=== PATIENT | male | born 2000 | race African-American/Black ===

== ENCOUNTER 2023-01-20 17:31 | Emergency (ER) | payer OTHER ==
[2023-01-20 17:54] VITALS: BP 136/91; PULSE 60; RESP 18; TEMP 99.1; BMI 22.4
[2023-01-20] MEDS ORDERED: AMOX TR/POT CLAV 875MG/125MG TABLETS (FP) PO ONE (19:27)
[2023-01-20] MEDS ORDERED: AMOX TR/POT CLAV 875MG/125MG TABLETS (FP) ONE (19:30)
== END 2023-01-20 19:40 | disposition home or self-care (01) ==
LOC: FER 17:31
DX: S70.11XA Contusion of right thigh, initial encounter (principal); W54.0XXA Bitten by dog, initial encounter; Y99.0 Civilian activity done for income or pay
CPT/HCPCS: 99283-25